=== PATIENT | male | born 1930 | race Caucasian/White ===

== ENCOUNTER → 2017-03-04 | Outpatient (CLI) | payer OTHER ==
[~2017-03-04] MED LIST: ACET-1311 PO; AMIO200T4 PO; ASCO250T5 PO; ASPEC81 PO; ATOR-26 PO; CALC500C70 PO; CITA10TA8 PO; CYAN10005 PO; DOCU100C31 PO; FOLI1TAB7 PO; LEVO50TA6 PO; LIDO5DIS10 TD; METO2.5T PO; METO25TA3 PO; MULT-506 PO; NTRGSL/4 UT; ONDA8TAB62 SL; PANT40TA PO; SENN-65 PO; TAMS0.4C38 PO; TORS20TA2 PO
[2017-03-04 13:45] LABS: BASO % 0.4 %; BASO ABS # 0.02 K/uL (0-0.2); EOS % 5.4 %; HEMATOCRIT 22.8 % (42-52); IG% 0.2 %; LYMPH % 9.4 %; LYMPH ABS # 0.47 K/uL (1.2-3.4); MEAN CELL VOLUME 104.6 fL (80-100); MEAN CORPUSCULAR HEMOGLOBIN 32.6 pg (25-34); MEAN CORPUSCULAR HGB CONC 31.1 g/dl (32-36); MEAN PLATELET VOLUME 10.6 fL (7.4-10.4); MONO % 13.3 %; NEUT % 71.3 %; PLATELET COUNT 139 K/uL (130-400); RED BLOOD COUNT 2.18 M/uL (4.7-6.1); WHITE BLOOD COUNT 4.98 K/uL (4.8-10.8)
[2017-03-04 14:11] LABS: ALB/GLOB RATIO 0.3 (0.9-2); ALT/SGPT 42 U/L (12-78); AST/SGOT 42 U/L (15-37); BLOOD UREA NITROGEN 35 mg/dl (7-18); CALCIUM 8.4 mg/dl (8.5-10.1); CARBON DIOXIDE 34 mmol/L (21-32); CHLORIDE 98 mmol/L (98-107); GLUCOSE 133 mg/dl (70-99); POTASSIUM 3.6 mmol/L (3.5-5.1); SODIUM 138 mmol/L (136-145)
[2017-03-04 14:20] LABS: ANISOCYTOSIS PRESENT; COMPLETE YES
[2017-03-04 14:21] LABS: ALKALINE PHOSPHATASE 107 U/L (45-117); TOTAL IRON BINDING CAPACITY 106 mcg/dl (250-450)
--- NOTE | 2017-03-12 09:05 | CODING QUERY MEDICAL NECESSITY ---
SUPPORTING DIAGNOSIS NEEDED A supporting diagnosis is required for the test/procedure performed on this patient in order for us to be reimbursed by the patient's insurance. Please provide a supporting diagnosis for the following test/procedure listed below next to the test name along with your signature. *If there is no additional diagnosis for this patient that would support the following test/procedure please document that below next to the test/procedure. Test(s)/Procedure(s) that require a supporting diagnosis: * VITAMIN B12 DIAGNOSIS: * FOLIC ACID DIAGNOSIS: Provider Signature: Date: Thank you Trang [place] [employer] Once completed, please kindly fax back to [phone] For questions please call [phone]
== END | disposition home or self-care (01) ==
LOC: C.LABSPEC 13:21
PROVIDERS: ATTEND Family Medicine
DX: R23.1 Pallor (principal); E03.9 Hypothyroidism, unspecified; I48.1 Persistent atrial fibrillation

== ENCOUNTER → 2017-04-10 | Outpatient (CLI) | payer OTHER ==
[2017-04-10 18:01] LABS: BASO % 0.6 %; BASO ABS # 0.05 K/uL (0-0.2); EOS % 6.1 %; HEMATOCRIT 27.4 % (42-52); IG% 0.1 %; LYMPH % 7.4 %; LYMPH ABS # 0.59 K/uL (1.2-3.4); MEAN CELL VOLUME 100.4 fL (80-100); MEAN CORPUSCULAR HEMOGLOBIN 30.4 pg (25-34); MEAN CORPUSCULAR HGB CONC 30.3 g/dl (32-36); MEAN PLATELET VOLUME 10.4 fL (7.4-10.4); MONO % 8.3 %; NEUT % 77.5 %; PLATELET COUNT 145 K/uL (130-400); RED BLOOD COUNT 2.73 M/uL (4.7-6.1); WHITE BLOOD COUNT 7.97 K/uL (4.8-10.8)
[2017-04-10 18:12] LABS: ALT/SGPT 38 U/L (12-78); AST/SGOT 42 U/L (15-37); BLOOD UREA NITROGEN 44 mg/dl (7-18); BUN/CREATININE RATIO 16.9 (10-20); CALCIUM 8.6 mg/dl (8.5-10.1); CARBON DIOXIDE 33 mmol/L (21-32); CHLORIDE 98 mmol/L (98-107); GLUCOSE 169 mg/dl (70-99); SODIUM 136 mmol/L (136-145)
[2017-04-10 18:17] LABS: ALB/GLOB RATIO 0.3 (0.9-2); ALKALINE PHOSPHATASE 112 U/L (45-117)
[2017-04-10 18:39] LABS: COMPLETE YES; LARGE PLATELETS 1+; POIKILOCYTOSIS PRESENT
== END | disposition home or self-care (01) ==
LOC: C.LABSPEC 17:36
PROVIDERS: ATTEND Family Medicine
DX: K92.1 Melena (principal); R39.11 Hesitancy of micturition